=== PATIENT | female | born 2000 | race African-American/Black ===

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

== ENCOUNTER 2023-01-25 16:51 | Emergency (ER) | payer MEDICAID, OTHER ==
[~2023-01-25] VITALS: Ht 160 cm; Wt 74.0 kg
[2023-01-25 17:07] VITALS: O2SAT 99
[2023-01-25] MEDS ORDERED: DEXAMETHASONE 4MG TABLET PO ONE (18:45)
[2023-01-25 19:38] VITALS: BP 124/69; PULSE 67; RESP 20; TEMP 98.3
== END 2023-01-25 19:41 | disposition home or self-care (01) ==
LOC: ER 16:51
DX: J06.9 Acute upper respiratory infection, unspecified (principal)
CPT/HCPCS: 99283; 87430; J8540